=== PATIENT | male | born 1970 | race Caucasian/White ===

== ENCOUNTER 2021-07-13 00:43 | Emergency (ER) | payer BC ==
[2021-07-13 01:47] VITALS: BP 160/88; PULSE 82; RESP 20; TEMP 98.3
[2021-07-13] MEDS ORDERED: ACET/COD 300 MG/30 MG STARTER PACK 6 TAB BTL PO STA (02:38)
[2021-07-13] MEDS ORDERED: AMOXIC-POT CLAV 875-125MG 1 EACH TAB PO STA (02:38)
--- NOTE | 2021-07-13 02:39 | ED ---
Skin/Abscess/FB HPI - General Chief complaint: Skin/Abscess/Foreign Body Stated complaint: Hand swelling/ cat bite Time Seen by Provider: 07/13/21 02:24 Source: patient Mode of arrival: ambulatory Limitations: no limitations - History of Present Illness Initial comments: 50-year-old male presents to the emergency department with a chief complaint of a cat bite. States this occurred about 2 days ago and now has developed swelling in her right hand. Patient reports the bite occurred on the right thumb and now is developed increased swelling. Reports mild erythema but denies any fevers or chills at home. States his vaccinations are up-to-date. States this was the neighbor's cat and has been vaccinated. He reports slight remitted range of motion in the hand due to the swelling. Reports taking [id number] analgesics to alleviate some of the pain - Related Data Previous Rx's Medication Instructions Recorded HYDROcodone/APAP 5-325MG [Glen 5] 1 each PO Q4HR PRN #20 tab 01/27/16 Naproxen [Naprosyn] 500 mg PO Q12HR #24 tab 01/27/16 clindamycin HCL [Cleocin] 300 mg PO Q6H #40 cap 01/27/16 Amoxicillin/Potassium Clav 1 tab PO Q12HR #20 tab 07/13/21 [Augmentin 875-125 Tablet] Allergies Allergy/AdvReac Type Severity Reaction Status Date / Time No Known Allergies Allergy Verified 07/13/21 01:47 Review of Systems ROS Statement: Those systems with pertinent positive or pertinent negative responses have been documented in the HPI. ROS Other: All systems not noted in ROS Statement are negative. Past Medical History Past Medical History: No Reported History History of Any Multi-Drug Resistant Organisms: None Reported Past Surgical History: Appendectomy Past Psychological History: No Psychological Hx Reported Smoking Status: Current every day smoker Past Alcohol Use History: Occasional Past Drug Use History: None Reported General Exam Limitations: no limitations General appearance: alert, in no apparent distress Head exam: Present: atraumatic, normocephalic, normal inspection Eye exam: Present: normal appearance, PERRL Pupils: Present: normal accommodation ENT exam: Present: normal exam, normal oropharynx, mucous membranes moist Neck exam: Present: normal inspection, full ROM. Absent: lymphadenopathy Respiratory exam: Present: normal lung sounds bilaterally. Absent: respiratory distress Cardiovascular Exam: Present: regular rate, normal rhythm, normal heart sounds. Absent: systolic murmur Extremities exam: Present: full ROM, tenderness (Tenderness at the injured site), normal capillary refill. Absent: normal inspection (Swelling in the right hand with 2 small puncture wounds on the right thumb. No lymphangitis. No significant erythema or discharge), pedal edema, joint swelling Back exam: Present: normal inspection, full ROM Neurological exam: Present: alert, oriented X3 Psychiatric exam: Present: normal affect, normal mood Skin exam: Present: warm, dry, intact, normal color Course Vital Signs 07/13/21 01:42 Temperature 98.3 F Pulse Rate 82 Respiratory 20 Rate Blood Pressure 160/88 O2 Sat by Pulse 97 Oximetry Medical Decision Making - Medical Decision Making 50-year-old male presents to emergency department with a chief complaint of a cat bite. On physical examination, he has a swollen right hand with no signs of the tinnitus or cellulitis at this time. We'll start the patient on Augmentin and will give him Tylenol 3 starter pack for pain. I offered him admission, he declined. Return parameters were discussed with patient is understanding and agreeable. Case discussed with physician. Disposition Clinical Impression: Cat bite Disposition: HOME SELF-CARE Condition: Stable Instructions (If sedation given, give patient instructions): Animal Bite (ED) Additional Instructions: Please return to the Emergency Department if symptoms worsen or any other concerns. Prescriptions: Amoxicillin/Potassium Clav [Augmentin 875-125 Tablet] 1 tab PO Q12HR #20 tab Is patient prescribed a controlled substance at d/c from ED?: No Referrals: None,Stated [Primary Care Provider] - 1-2 days Time of Disposition: 02:39
== END 2021-07-13 03:00 | disposition home or self-care (01) ==
LOC: EC 00:43
DX: S61.051A Open bite of right thumb without damage to nail, initial encounter (principal); F17.200 Nicotine dependence, unspecified, uncomplicated; W55.01XA Bitten by cat, initial encounter
CPT/HCPCS: 99283